=== PATIENT | male | born 1945 | race Caucasian/White ===

== ENCOUNTER 2017-05-16 15:02 | Inpatient (IN) | payer MEDICARE, BC ==
[~2017-05-16] VITALS: Ht 175.3 cm; Wt 93.2 kg
--- NOTE | ~2017-05-16 | CN ---
PATIENT NAME:DRE MORA MEDICAL RECORD: [id number] : 43 LOCATION:D.MS [place] ADMIT DATE: 05/16/17 ACCOUNT: [id number] CONSULTING PHYSICIAN: SUREKHA KLINE MD REFERRING PHYSICIAN: MARTIN GUTIÉRREZ MD DATE OF CONSULTATION: 05/17/2017 CONSULT REQUESTING PHYSICIAN: Dr. Martin Gutiérrez. REASON FOR CONSULTATION: Acute hypoxic respiratory failure, dyspnea. HISTORY OF PRESENT ILLNESS: Mr. Mora is a 71-year-old gentleman, who was admitted from the longterm with worsening shortness of breath, orthopnea, or PND. He also hears himself wheezing. There are no fever and chills. The patient has recently right knee replacement and since then, that was complicated by the pulmonary embolism and he is on Coumadin, which is therapeutic. He denies any chest pain. REVIEW OF SYSTEMS: As in history of present illness. PAST MEDICAL HISTORY: 1. Congestive heart failure. 2. Atrial fibrillation. 3. Coronary artery disease. 4. Recent pulmonary embolism. 5. History of GI bleed and ulcer. PAST SURGICAL HISTORY: 1. He is status post right knee replacement. 2. Back surgery. ALLERGIES: He has no known drug allergies. PRESENT MEDICATIONS: On Smart Holograms was reviewed. PERSONAL AND SOCIAL HISTORY: The patient is . He lives with his . He never smoked. He does having a heavy secondhand smoking exposure. FAMILY HISTORY: Noncontributory. PHYSICAL EXAMINATION: GENERAL: Now, the patient is lying comfortable and not in acute distress. VITAL SIGNS: The blood pressure is 143/86, pulse is 87, respiration is 16, temperature ____, and SpO2 is 92% on 4 liters nasal cannula. HEENT: Conjunctiva is pink. Sclera is nonicteric. NECK: Neck is supple. No JVD. CHEST: There is no wheeze. There are bilateral basal crackles. HEART: Rate and rhythm irregular. Normal sound. No murmur. ABDOMEN: Abdomen is soft. Bowel sounds present. No hepatosplenomegaly. RECTAL: Deferred. EXTREMITIES: No cyanosis, no clubbing, no pedal edema. SKIN: The skin is warm. Normal turgor. CENTRAL NERVOUS SYSTEM: The patient is awake and alert. There is no obvious cranial nerve abnormality. The gait was not tested. CONSULT REPORT [id number] DRE OMRA IMAGING: Chest radiograph, there are increased interstitial markings and prominent pulmonary vessels. LABORATORY DATA: CBC: The WBC is 10,000, hemoglobin 8.8, hematocrit 29.1, and the platelet count 304. Chemistry: Sodium 134, potassium 3.9, BUN is 13, creatinine 1.2. The proBNP 2554 and the INR is 3.38. IMPRESSION: 1. Acute hypoxic respiratory failure secondary to pulmonary edema and congestive heart failure. 2. Chronic obstructive pulmonary disease acute exacerbation, most likely secondary to congestive heart failure, possible underlying pneumonitis. 3. History of recent pulmonary embolism. The PT/INR is therapeutic. 4. Gastroesophageal reflux disease. 5. History of atrial fibrillation. RECOMMENDATION: 1. I will discontinue Augmentin and start him on IV Zosyn. 2. Start on Brovana and budesonide nebulizer. Start him on albuterol/ipratropium nebulizer. Continue Lasix. Follow up on the cardiac echo. Follow up labs and chest radiograph. Dr. Gutiérrez, thank you for involving me in the care of Mr. Mora. TRANSINT:[id number] Voice Confirmation ID: [id number] DOCUMENT ID: [id number] SUREKHA KLINE MD CC: MARTIN GUTIÉRREZ MD [id number] DICTATION DATE: 05/17/17 160 FLUME TENDER: 05/17/172018 ADM IN [place] [id number] [place] [id number]
--- NOTE | ~2017-05-16 | CN ---
PATIENT NAME:DRE ASKEW MEDICAL RECORD: [id number] : 43 LOCATION:D.MS [place] ADMIT DATE: 05/16/17 ACCOUNT: [id number] CONSULTING PHYSICIAN: MILTON BOWSER MD REFERRING PHYSICIAN: WILFREDO MIRANDA MD DATE OF CONSULTATION: 05/17/2017 Cardiology Consultation DIAGNOSES: 1. Shortness of breath. 2. Hypotension. 3. Recent pulmonary embolus. 4. Status post knee surgery in conjunction with pulmonary embolus. 5. Atrial fibrillation. HISTORY OF PRESENT ILLNESS: This is a 71-year-old gentleman admitted from a senior care with shortness of breath and hypotension. He has been short of breath since knee surgery in April, it is complicated by pulmonary embolus. This was in [place]. His chest x-ray is not compatible with pulmonary edema, he has very small left pleural effusion. He had an echocardiogram done. This reveals normal ejection fraction at 55% range, significant tricuspid regurgitation, pulmonary systolic pressure is elevated estimated at 55 mmHg. He has history of chronic atrial fibrillation for which he is on Coreg and diltiazem. His heart rate has been well controlled under 100 since he has been here. His blood pressure has been systolic in the 106-146 range. He is anemic at 8.8. Troponin is unremarkable. Creatinine is unremarkable. PHYSICAL EXAMINATION: GENERAL APPEARANCE: Well-nourished, well-developed, appears stated age. Level of distress, comfortable. PSYCHIATRIC: Mental status, alert, normal affect. Orientation, oriented to time, place and person. EYES: Lids and conjunctiva, noninjected. No discharge, no pallor. ENT: Lips, teeth, gums, normal dentition. Oropharynx, no cyanosis, no pallor. NECK: Carotid arteries, bilateral normal upstroke, no bruits, no thrills. JUGULAR VEINS: No jugular venous pressure or distention. CERVICAL LYMPH NODES: Nontender, nonenlarged. THYROID: Not enlarged. Nontender. No nodules. LUNGS: Respiratory effort, unlabored. CHEST: Normal curvature. No thoracic deformity. No chest wall tenderness. Percussion, resonant. Auscultation, clear. No wheezes, no rales, no rhonchi. CARDIOVASCULAR: Precordial exam, nondisplaced. No heaves or pericardial thrills. Rate and rhythm, regular. Heart sounds, normal S1, normal S2. No S3, no gallop, no rub. Systolic murmur, not heard. Diastolic murmur, not heard. EXTREMITIES: No cyanosis, no edema. Peripheral pulses, full and equal in all extremities, except as noted. No bruits appreciated. ABDOMEN: Soft, nondistended. Normal aorta. No bruit. Nontender. No masses. Liver, nontender, no hepatomegaly. Spleen, nontender, no splenomegaly. MUSCULOSKELETAL: No joint tenderness. No joint swelling. No erythema. NEUROLOGICAL: Normal gait, normal strength, normal tone. SKIN: Warm and dry. OVERALL IMPRESSION: This is not congestive heart failure. He has a normal ejection fraction of 50%, [id number] mitral regurgitation, but moderate CONSULT REPORT [id number] DRE ASKEW tricuspid regurgitation and elevated pulmonary systolic pressure is compatible with the pulmonary embolus. I think his shortness of breath is from the pulmonary embolus. At this time, he is stable from a cardiac standpoint. No other cardiac workup or treatment is necessary. TRANSINT:[id number] Voice Confirmation ID: [id number] DOCUMENT ID: [id number] MILTON BOWSER MD CC: [id number] DICTATION DATE: 05/17/17 155 ASSOCIATE PROFESSOR OF KINESIOLOGY: 05/17/172019 ADM IN [facility] [address] [place] [address]
--- NOTE | ~2017-05-16 | EC ---
PATIENT:DRE ASKEW DATE OF SERVICE: 05/16/17 SEX: M MEDICAL RECORD: [id number] DATE OF : 43 LOCATION:D.MS [place] AGE OF PATIENT: 71 ADMISSION DATE: 05/16/17 REFERRING PHYSICIAN: INTERPRETING PHYSICIAN: MILTON PENN MD ECHOCARDIOGRAM REPORT ECHO CHARGES 4 ECHO COMPLETE CLINICAL DIAGNOSIS: SOB ECHOCARDIOGRAPHIC MEASUREMENTS (adult normal given) AC root (d.<3.7cm) 4.0 cm LV Septum d (<1.2 cm> 1.4 cm Valve Excursion 2.1 cm LV Septum (systole) 2.1 cm Left Atria (s.<4.0cm> 4.6 cm LVPW d(<1.2cm) 1.5 cm RV (d.<2.3cm) 3.5 cm LVPW (sytole) 2.0 cm LV diastole(<5.6CM) 5.0 cm MV E-F(>70mm/sec) cm LV systole 3.0 cm LVOT Diameter 2.1 cm MV exc.(>10mm) cm Est.ejection fraction (50-75%) % Pericardial Effusion N DOPPLER: LVIT cm/sec A cm/sec E 96.0 cm/sec LA cm/sec RVSP 55.1 mmHg LVOT 77.0 cm/sec AOP1/2T m/s Asc. Ao 110 cm/sec RVOT 48.0 cm/sec RA cm/sec PA 100 cm/sec AV Gradient Peak 4.8 mmHg AV Mean 2.5 mmHg AV Area 1.7 cm MV Gradient Peak 7.0 mmHg MV Mean 1.9 mmHg MV Area cm COMMENTS: Can Line Operator: Rupali GARRIDO [place] Brake Repair Supervisor: 1 Dr. Penn TAPE# PACS DATE OF SERVICE: 05/17/2017 Echocardiogram FINDINGS: 1. Left ventricular chamber size is within normal limits. Left ventricular systolic function is normal. Overall ejection fraction estimated at 55% to 60%. 2. Left atrium is enlarged at 4.6 cm. Right atrium and right ventricular chamber sizes are moderate to severely dilated. 3. Valvular structures have normal structure and motion. ECHOCARDIOGRAM REPORT [id number] DRE ASKEW 4. Doppler interrogation reveals mild to moderate mitral regurgitation, moderate tricuspid regurgitation, no other valvular insufficiency or stenosis. Pulmonary systolic pressure is elevated estimated at 55 mmHg. 5. No evidence of pericardial effusion or left ventricular thrombus. TRANSINT:[id number] Voice Confirmation ID: [id number] DOCUMENT ID: [id number] MILTON PENN MD CC: [id number] DICTATION DATE: 05/17/17 155 FISHER CLAM: 05/17/172006 ADM IN [facility] [address] [place] [id number]
[~2017-05-16 15:02] MED LIST: AUGMENTIN 500-11 TA1 PO; DEPAKENE250 MG PO; IPRAT-ALBUT 0.5-3 ML UPD
--- NOTE | 2017-05-16 15:10 | NUR ---
PT ARRIVED TO THE FLOOR VIA STRETCHED BROUGHT BY EMS, PT TRANSFERRED INTO BED, CALL PLACED TO [facility] TO OBTAIN REPORT ON PT. SPOKE WITH AT THIS TIME AND RECIEVED ORDERS TO CONSULT PULMONOLOGY. ASSESSMENT DONE PER FLOWSHEET. BED IN LOW POSITION AND CALL LIGHT WITHIN REACH. WILL CONTINUE TO MONITOR.
[2017-05-16 15:20] LABS: BASOPHILS 0.7 % (0-2); EOSINOPHILS 4.9 % (0-7); HEMOGLOBIN 8.6 g/dL (13.5-17.5); IMMATURE GRANULOCYTES 0.1 % (0-5); LYMPHOCYTES 17.1 % (15-50); MCHC 30.7 g/dL (31.0-37.0); MCV 97.6 fL (80.0-100.0); MEAN PLATELET VOLUME 7.9 fL (7.4-10.4); MONOCYTES 14.4 % (2-11); NEUTROPHILS 62.8 % (40-80); PLATELET COUNT 276 10x3/uL (130-400); RBC 2.87 10x6/uL (4.20-6.10); RDW 16.6 % (11.5-14.5); WBC 7.4 10x3/uL (4.8-10.8)
[2017-05-16 15:51] LABS: ALBUMIN 2.3 g/dL (3.4-5.0); ANION GAP 4.2 mmol/L (8-16); BILIRUBIN - TOTAL 0.38 mg/dL (0.2-1.3); CARBON DIOXIDE 37.7 mmol/L (21.0-32.0); CREATININE - SERUM 1.2 mg/dL (0.6-1.3); POTASSIUM - SERUM 3.9 mmol/L (3.5-5.1)
[2017-05-16] MEDS ORDERED: LIPITOR20 MG PO (17:03)
[2017-05-16] MEDS ORDERED: BUMETANIDE0.5 MG PO (17:05)
[2017-05-16] MEDS ORDERED: BUMEX 1 MG TAB1 MG PO (17:09)
[2017-05-16] MEDS ORDERED: CARDIZEM CD240 MG PO (17:11)
[2017-05-16] MEDS ORDERED: COREG25 MG PO (17:11)
[2017-05-16] MEDS ORDERED: COLACE100 MG PO (17:12)
[2017-05-16 17:14] VITALS: BP 111/80; Ht 175.3 cm; Wt 93.2 kg
[2017-05-16] MEDS ORDERED: FLORANEX / LACT1 TAB PO (17:15)
[2017-05-16] MEDS ORDERED: PROTONIX40 MG PO (17:16)
[2017-05-16] MEDS ORDERED: NEURONTIN 300300 MG PO (17:16)
[2017-05-16] MEDS ORDERED: VITAMIN B-121000 MCG PO (17:21)
[2017-05-16] MEDS ORDERED: COUMADIN5 MG PO (17:22)
[2017-05-16] MEDS ORDERED: ALBUTEROL2.5 MG/3 M INH (17:23)
[2017-05-16] MEDS ORDERED: HYDROCODON-ACE1 EAC7 PO (17:24)
[2017-05-16] MEDS ORDERED: ATIVAN0.5 MG PO (17:25)
[2017-05-16] MEDS ORDERED: SANTYL30 GM TP (17:27)
[2017-05-16 18:47] LABS: APPEARANCE CLEAR (CLEAR); BILIRUBIN NEGATIVE (NEGATIVE); COLOR YELLOW (YELLOW); GLUCOSE NEGATIVE (NEGATIVE); KETONE NEGATIVE (NEGATIVE); LEUKOCYTE ESTERASE NEGATIVE (NEGATIVE); NITRITE NEGATIVE (NEGATIVE); PROTEIN NEGATIVE (NEGATIVE); UROBILINOGEN NORMAL (NORMAL)
--- NOTE | 2017-05-16 19:25 | NUR ---
RECIEVED SHIFT REPORT. PT IS LYING IN BED. ALERT AND ORIENTED AND ABLE TO VERBALIZE NEEDS. IV IS PATENT AND FLUIDS ARE RUNNING PER ORDER. O2 @ 4 PER NASAL CANNULA. DRESSING TO RIGHT KNEE C/D/I. SCD'S ON. PT DENIES ANY PAIN AT THIS TIME. NO NEEDS ARE VERBALIZED AT THIS TIME. WILL CONTINUE TO MONITOR. SIDE RAILS ARE UP X 2. BED IS IN LOWEST POSITION. MALCOM MAT IS ON FOR SAFETY. CALL LIGHT IS WITHIN REACH. IS AT THE BEDSIDE.
[2017-05-16 20:00] VITALS: BP 106/76
--- NOTE | 2017-05-16 21:34 | NUR ---
SHIFT ASSESSMENT COMPLETED. PRN ATIVAN ADMINISTERED PRESCRIBED PER ORDER AND PT REQUEST. NO FURTHER NEEDS VOICED. WILL MONITOR. SIDE RAILS X 2. BED LOW. MALCOM ON. CALL LIGHT IN REACH.
[2017-05-17 04:00] VITALS: BP 133/67
--- NOTE | 2017-05-17 07:45 | NUR ---
PT ASSESSMENT COMPLETE AWAKE AND ALERT ORINETED TO NAME ONLY CONFUSED TO TIME AND PLACE AND SITUATION, REORIENTED OFTEN HOWEVER PT UNABLE TO RETAIN INFORMATION. PIV TO LEF FORARM NOTED AND PATENT WITH NOTED DIMINISHED LUNGS SOUNDS AND SHORTNESS OF BREATH
[2017-05-17 08:23] VITALS: BP 143/86
[2017-05-17 08:29] LABS: BASOPHILS 0.4 % (0-2); EOSINOPHILS 2.7 % (0-7); HEMATOCRIT 29.1 % (42.0-54.0); HEMOGLOBIN 8.8 g/dL (13.5-17.5); IMMATURE GRANULOCYTES 0.2 % (0-5); LYMPHOCYTES 8.4 % (15-50); MCH 29.9 pg (26.0-34.0); MCHC 30.2 g/dL (31.0-37.0); MEAN PLATELET VOLUME 8.1 fL (7.4-10.4); MONOCYTES 11.5 % (2-11); NEUTROPHILS 76.8 % (40-80); PLATELET COUNT 304 10x3/uL (130-400); RBC 2.94 10x6/uL (4.20-6.10); RDW 16.7 % (11.5-14.5)
[2017-05-17 08:39] LABS: INR 3.38 (0.85-1.17); PROTIME 34.5 SECONDS (11.6-15.0)
[2017-05-17 08:58] LABS: % SATURATION 9 % (15-55); IRON 27 ug/dl (35-150); TOTAL IRON BIND CAPACITY 277 ug/dl (260-445); UNSAT IRON BIND CAPACITY 250 ug/dl (150-375)
--- NOTE | 2017-05-17 09:02 | NUR ---
Patient Name: DRE ASKEW Admission Status: Elective Accout number: [id number] Admission Date: 05-16-2017 : 1945 Admission Diagnosis: Attending: SHADY Current LOS: 1 Anticipated DC Date: 05-17-2017 Planned Disposition: Home with Home Health Primary Insurance: MEDICARE A & B Discharge Planning Comments: CM MET WITH PATIENT REGARDING D/C NEEDS AND PLANS. PATIENT STATED HE LIVES WITH HIS (KELVIN) AND SHE WILL DRIVE HIM HOME AT DISCHARGE. PATIENT STATED THERE ARE 2 STEPS W/RAILS TO ENTER HOME AND NO STAIRS INSIDE. PATIENT STATED HE HAS BEEN INDEPENDENT W/A WALKER (ALSO HAS A CANE) AT HOME. PATIENT STATED HIS PCP IS DR. CARSON IN [place] AND PHARMACY IS [facility] IN [place]. PATIENT SIGNED THE KARLY FORM WITH [facility] WHEN DISCHARGE. CM WILL CONTINUE TO FOLLOW PATIENT WITH D/C NEEDS AND PLANS. PCP DR. ALLI NOBLE IN [place]- [phone] KELVIN () [phone] WORK [phone] Display Fabricator: Libia Guerrero Is the patient Alert and Oriented? Yes 0 * How many steps to enter\exit or inside your home? 2 W/RAILS 0 * PCP DR. CARSON 0 * Pharmacy [facility] IN [place] 0 * Preadmission Environment Home with Family 0 * ADLs Independent 0 * Equipment Cane Walker 0 * List name and contact numbers for known caregivers / representatives who currently or will assist patient after discharge: KELVIN () [phone] WORK [phone] * Community resources currently utilized None 0 * Additional services required to return to the preadmission environment? Yes 0 * Can the patient safely return to the preadmission environment? Yes 0 * Has this patient been hospitalized within the prior 30 days at any hospital? Yes 0 Grand Total: 0
--- NOTE | 2017-05-17 09:11 | NUR ---
CM REASSESSMENT NOTE: CM CALLED PATIENTS AND CLARIFIED IF PATIENT CAME FROM HOME OR FROM A FACILITY. PATIENT CAME FROM [facility] AND WILL RETURN THERE AT DISCHARGE PER .
[2017-05-17 09:15] LABS: FERRITIN 392 ng/mL (3-244); PRO BNP 2554 pg/mL (0-125)
--- NOTE | 2017-05-17 11:30 | NUR ---
HU CATHETER PLACED PER STERILE TECHNIQUE ALL PEICES OF STERILE KIT USED PER PROTOCOL STAT LOCK PLACED TO RIGHT THIGH.
[2017-05-17 12:05] VITALS: BP 146/74
--- NOTE | 2017-05-17 13:11 | NUR ---
SITTING UP IN BED VISITING WITH . NO C/O AT THIS TIME. LUNGS ARE CLEAR. BP APPEARS TO LEVELING OFF SOMEWHAT. PATIENT REPORTS TIRED ALL THE TIME. STATED ALWAYS CONFUSED IN AM AND CLEARS AROUND NOON. A/O X3 AT THIS TIME. DENIES NEEDS.
--- NOTE | 2017-05-17 13:14 | NUR ---
PT AT BEDSIDE CALL LIGHT INREACH SIDE RAILS UP X 2 VOICES NEEDS STILL WITH CONFUSION NOTED
[2017-05-17 16:05] VITALS: BP 119/67
--- NOTE | 2017-05-17 17:39 | NUR ---
PT RESTING IN BED HIGH FOWLERS POSITION NOTED PIV RESITED EARLIER THIS SHIFT 20 GA X 1 STICK TO RIGHT FORARM DUE TO PT PULLED OUT ORIGINAL IV. PT TOLERATED WELL.
--- NOTE | 2017-05-17 19:25 | NUR ---
RECIEVED SHIFT REPORT. PT IS LYING IN BED. PT WITH INTERMITTENT CONFUSION AT THIS TIME. O2 @ 4 PER NASAL CANNULA. HU IS DRAINING URINE BY GRAVITY. SCD'S ON. IV IS PATENT AND FLUIDS ARE RUNNING PER ORDER. PT DENIES ANY PAIN AT THIS TIME. NO NEEDS ARE VERBALIZED AT THIS TIME. WILL CONTINUE TO MONITOR. SIDE RAILS ARE UP X 2. BED IS IN LOWEST POSITION. MALCOM MAT IS ON FOR SAFETY. CALL LIGHT IS WITHIN REACH.
[2017-05-17 20:00] VITALS: BP 120/79
--- NOTE | 2017-05-17 20:50 | NUR ---
SHIFT ASSESSMENT COMPLETED. NIGHT MEDS GIVEN WITH NO PROBLEMS. ADMINISTERED PRESCRIBED PRN ATIVAN PER PT REQUEST. NO FURTHER NEEDS AT THIS TIME. WILL MONITOR. SIDE RAILS X 2. BED LOW. MALCOM ON. CALL LIGHT IN REACH.
[2017-05-18] VITALS: BP 133/82
[2017-05-18 04:00] VITALS: BP 128/75
[2017-05-18 05:17] LABS: BASOPHILS 0.7 % (0-2); EOSINOPHILS 4.9 % (0-7); HEMATOCRIT 29.4 % (42.0-54.0); IMMATURE GRANULOCYTES 0.1 % (0-5); LYMPHOCYTES 11.6 % (15-50); MCH 30.2 pg (26.0-34.0); MCHC 30.6 g/dL (31.0-37.0); MCV 98.7 fL (80.0-100.0); MEAN PLATELET VOLUME 8.3 fL (7.4-10.4); MONOCYTES 15.2 % (2-11); NEUTROPHILS 67.5 % (40-80); PLATELET COUNT 309 10x3/uL (130-400); RBC 2.98 10x6/uL (4.20-6.10); RDW 16.6 % (11.5-14.5); WBC 9.2 10x3/uL (4.8-10.8)
[2017-05-18 05:32] LABS: CALC OSMOLALITY 276 mosm/kg (275-300); CALCIUM 8.8 mg/dL (8.5-10.1); CHLORIDE - SERUM 96 mmol/L (98-107); GLUCOSE 123 mg/dL (74-106); POTASSIUM - SERUM 3.8 mmol/L (3.5-5.1); SODIUM 138 mmol/L (136-145); UREA NITROGEN 13 mg/dL (7-18); eGFR NON AFRICAN AMERICAN 78 mL/min (90-120)
[2017-05-18 05:41] LABS: CARBON DIOXIDE 40.2 mmol/L (21.0-32.0)
[2017-05-18 09:05] VITALS: BP 128/75
--- NOTE | 2017-05-18 12:00 | NUR ---
Wound care: Pt has a chronic open wound to right knee measuring 1.5cm x 1.5cm. Pt had knee surgery in April and has had a problem with infection. The wound bed is pink and pt reports no drainage. There is no odor. Recommended silver dressing be applied daily. Will continue to monitor.
[2017-05-18 13:22] VITALS: BP 126/63
[2017-05-18 17:36] VITALS: BP 133/54
--- NOTE | 2017-05-18 17:54 | NUR ---
PT SITTING UP IN CHAIR AT BEDSIDE NO DISTRESS NOTED VOICES ALL NEEDS OT STAFF CALL LIGHT INREACH MALCOM MAT UNDER PT IN CHAIR
--- NOTE | 2017-05-18 19:30 | NUR ---
RECIEVED SHIFT REPORT. PT IS LYING IN BED. PT IS ALERT AND ORIENTED BUT WITH SOME INTERMITTENT CONFUSION. IV IS PATENT AND FLUIDS ARE RUNNING PER ORDER. HU IS DRAINING URINE BY GRAVITY. O2 @ 2.5 PER NASAL CANNULA. SCD'S ON. PT STATES PAIN IS 8/10. PT IS AMBULATORY WITH ASSISTANCE. NO NEEDS ARE VERBALIZED AT THIS TIME. WILL CONTINUE TO MONITOR. SIDE RAILS ARE UP X 2. BED IS IN LOWEST POSITION. MALCOM MAT IS ON FOR SAFETY. CALL LIGHT IS WITHIN REACH.
[2017-05-18 20:00] VITALS: BP 127/74
--- NOTE | 2017-05-18 20:44 | NUR ---
SHIFT ASSESSMENT COMPLETED. NIGHT MEDS GIVEN WITH NO PROBLEMS. PT REQUESTING PRN ATIVAN. ADMINISTERED PER ORDER. PT C/O PAIN 05/20. ADMINISTERED PRESCRIBED PRN NORCO PER ORDER. DENIES FURTHER NEEDS. WILL MONITOR. SIDE RAILS X 2. BED LOW. MALCOM ON. CALL LIGHT IN REACH.
[2017-05-19] VITALS: BP 122/68
[2017-05-19 05:49] LABS: BASOPHILS 0.8 % (0-2); EOSINOPHILS 5.8 % (0-7); HEMATOCRIT 31.5 % (42.0-54.0); HEMOGLOBIN 9.6 g/dL (13.5-17.5); IMMATURE GRANULOCYTES 0.4 % (0-5); LYMPHOCYTES 14.4 % (15-50); MCH 29.6 pg (26.0-34.0); MCHC 30.5 g/dL (31.0-37.0); MCV 97.2 fL (80.0-100.0); MEAN PLATELET VOLUME 8.5 fL (7.4-10.4); MONOCYTES 13.8 % (2-11); NEUTROPHILS 64.8 % (40-80); PLATELET COUNT 344 10x3/uL (130-400); RBC 3.24 10x6/uL (4.20-6.10); RDW 16.5 % (11.5-14.5); WBC 8.3 10x3/uL (4.8-10.8)
[2017-05-19 05:56] LABS: INR 3.61 (0.85-1.17); PROTIME 36.4 SECONDS (11.6-15.0)
[2017-05-19 06:04] LABS: CALCIUM 8.4 mg/dL (8.5-10.1); CREATININE - SERUM 1.1 mg/dL (0.6-1.3); POTASSIUM - SERUM 3.5 mmol/L (3.5-5.1)
[2017-05-19 06:14] LABS: ANION GAP 8.5 mmol/L (8-16)
--- NOTE | 2017-05-19 07:55 | NUR ---
PT AOX4 RESP EVEN AND NONLABORED IV TO RIGHT FOREARM PATENT AND INTACT AT THIS TIME PT DENIES NEEDS AT THIS TIME SRX2 BED AT LOWEST SETTING CALL LIGHT WITHIN REACH WILL CONTINUE TO MONITOR
[2017-05-19 09:41] VITALS: BP 117/88
[2017-05-19 12:55] VITALS: BP 129/69
[2017-05-19 16:34] VITALS: BP 119/70
--- NOTE | 2017-05-19 19:25 | NUR ---
RECIEVED SHIFT REPORT. PT IS LYING IN BED. ALERT AND ORIENTED AND ABLE TO VERBALIZE NEEDS BUT DOES HAVE CONFUSION AT TIMES. IV IS PATENT AND FLUIDS ARE RUNNING PER ORDER. HU IS DRAINING URINE BY GRAVITY. O2 @ 2.5 PER NASAL CANNULA. SCD'S ON. PT STATES PAIN IS 9/10. NO NEEDS ARE VERBALIZED AT THIS TIME. WILL CONTINUE TO MONITOR. SIDE RAILS ARE UP X 2. BED IS IN LOWEST POSITION. MALCOM MAT IS ON FOR SAFETY. CALL LIGHT IS WITHIN REACH.
[2017-05-19 20:00] VITALS: BP 116/66
--- NOTE | 2017-05-19 21:16 | NUR ---
SHIFT ASSESSMENT COMPLETED. NIGHT MEDS GIVEN WITH NO PROBLEMS. PT C/O PAIN 06/20. ADMINISTERED PRESCRIBED PRN NORCO PER ORDER. PT ALSO REQUESTING PRN ATIVAN. ADMINISTERED PER ORDER. NO FURTHER NEEDS. WILL MONITOR. SIDE RAILS X 2. BED LOW. MALCOM ON. CALL LIGHT IN REACH.
[2017-05-20 04:00] VITALS: BP 131/95
[2017-05-20 05:49] LABS: BASOPHILS 1.2 % (0-2); EOSINOPHILS 6.4 % (0-7); HEMATOCRIT 33.3 % (42.0-54.0); HEMOGLOBIN 10.2 g/dL (13.5-17.5); IMMATURE GRANULOCYTES 0.2 % (0-5); LYMPHOCYTES 16.8 % (15-50); MCH 29.5 pg (26.0-34.0); MCHC 30.6 g/dL (31.0-37.0); MCV 96.2 fL (80.0-100.0); MEAN PLATELET VOLUME 8.4 fL (7.4-10.4); NEUTROPHILS 62.4 % (40-80); PLATELET COUNT 369 10x3/uL (130-400); RBC 3.46 10x6/uL (4.20-6.10); RDW 16.4 % (11.5-14.5); WBC 8.2 10x3/uL (4.8-10.8)
[2017-05-20 06:06] LABS: INR 2.83 (0.85-1.17)
[2017-05-20 06:26] LABS: CALCIUM 8.7 mg/dL (8.5-10.1); CREATININE - SERUM 1.3 mg/dL (0.6-1.3); POTASSIUM - SERUM 3.2 mmol/L (3.5-5.1)
[2017-05-20 06:37] LABS: ANION GAP 9.2 mmol/L (8-16)
--- NOTE | 2017-05-20 08:27 | NUR ---
PT SEEN AND ASSESSED. ALERT AND ORIENTED TO PERSON PLACE AND MONTH/YEAR. CURRENTLY LYING ON BACK-BUTTOCK RED. ENCOURAGED PT WILL TURN EVERY FEW HOURS TO PREVENT BREAKDOWN. BED ALARM ON FOR SAFETY. HU NOTED WITH YELLOW URINE. LUNGS CLEAR. CALL LIGHT IN REACH
[2017-05-20 09:02] VITALS: BP 148/88
--- NOTE | 2017-05-20 12:11 | NUR ---
STATES PATIENT HAS NOT HAD A BM SINCE ADMISSION. DR RUBEN LEE
[2017-05-20 13:26] VITALS: BP 139/74
--- NOTE | 2017-05-20 14:07 | NUR ---
DR MIRANDA BEEPED REGARDING PT/INR RESULTS TO DOUBLE CHECK COUMADIN DOSAGE
[2017-05-20 16:28] VITALS: BP 140/72
--- NOTE | 2017-05-20 18:14 | NUR ---
PT SAT UP IN CHAIR FOR SEVERAL HOURS TODAY. HAD LARGE BM BUT DID NOT OBTAIN SPECIMEN. WILL WITH NEXT BM AND WILL PASS ON IN REPORT. CURRENTLY IN BED WITH CALL LIGHT IN REACH. BED ALARM ON FOR SAFETY
--- NOTE | 2017-05-20 19:48 | NUR ---
RECIEVED LYING IN BED WITH HOB ELEVATED. O2@ 2.5 LITERS PER NASAL CANNULA. RESPIRATIONS EVEN AND UNLABORES. F/C PATENT WITH CEAR YELLOW URINE TO BEDSIDE DRAINAGE SYSTEM. SCD'S IN PLACE AND BED ALARM ON.
[2017-05-20 20:00] VITALS: BP 125/62
--- NOTE | 2017-05-20 22:18 | NUR ---
INCONTINENT OF BOWEL. STOOL SPECIMEN COLLECTED AND TAKEN TO LAB BY THIS NURSE.
[2017-05-21] VITALS: BP 119/75
[2017-05-21 04:00] VITALS: BP 119/69
[2017-05-21 05:50] LABS: BASOPHILS 0.9 % (0-2); EOSINOPHILS 3.1 % (0-7); HEMATOCRIT 32.1 % (42.0-54.0); HEMOGLOBIN 10.1 g/dL (13.5-17.5); IMMATURE GRANULOCYTES 0.2 % (0-5); LYMPHOCYTES 15.3 % (15-50); MCH 29.6 pg (26.0-34.0); MCHC 31.5 g/dL (31.0-37.0); MEAN PLATELET VOLUME 8.5 fL (7.4-10.4); MONOCYTES 12.7 % (2-11); NEUTROPHILS 67.8 % (40-80); PLATELET COUNT 336 10x3/uL (130-400); RBC 3.41 10x6/uL (4.20-6.10); RDW 16.1 % (11.5-14.5)
[2017-05-21 05:56] LABS: MCV 94.1 fL (80.0-100.0)
[2017-05-21 06:00] LABS: ANION GAP 5.6 mmol/L (8-16); CALCIUM 9.1 mg/dL (8.5-10.1); CARBON DIOXIDE 39.8 mmol/L (21.0-32.0); CREATININE - SERUM 1.3 mg/dL (0.6-1.3); POTASSIUM - SERUM 3.4 mmol/L (3.5-5.1)
[2017-05-21 06:02] LABS: INR 2.38 (0.85-1.17); PROTIME 26.1 SECONDS (11.6-15.0)
--- NOTE | 2017-05-21 07:00 | NUR ---
REPORT RECIEVED ASSUMED CARE. PATIENT IN BED WITH IV INTACT. NO COMPLAINTS. CALL LIGHT WITHIN REACH.
[2017-05-21 08:27] VITALS: BP 108/66
[2017-05-21] MEDS ORDERED: COUMADIN3 MG PO (10:43)
[2017-05-21] MEDS ORDERED: FERROUS SULFAT325 MG PO (10:44)
[2017-05-21] MEDS ORDERED: K-DUR20 MEQ PO (10:45)
[2017-05-21] MEDS ORDERED: BUMEX2 MG PO (10:45)
[2017-05-21] MEDS ORDERED: PULMICORT0.5 MG/21 UPD (10:46)
--- NOTE | 2017-05-21 11:33 | NUR ---
CM REASSESSMENT NOTE: PATIENT IS GOING TO [facility] IN [place] BY FACILITY VAN TO A SKILLED BED. IS AWARE AND STATED SHE IS COMING TO HOSPITAL BEFORE PATIENT IS DISCHARGED.
--- NOTE | 2017-05-21 13:40 | NUR ---
DISCHARGE INSTRUCTIONS GIVEN TO PATIENT. VERBALIZED UNDERSTANDING. IV REMOVED WITH CATH TIP INTACT. FAMILY AT BEDSIDE. NO QUESTIONS AT THIS TIME. EXPLAINED ORDERED TO LEAVE CATHETER IN AND WILL REMOVE AT [place]. CALL LIGHT WITHIN REACH. WAITING FOR TRANSPORTATION.
[2017-05-21 13:47] VITALS: BP 130/86
--- NOTE | 2017-05-21 16:15 | NUR ---
PATIENT ESCORTED OUT OF BUILDING VIA WC WITH PHONE TO VEHICLE BY [place] OFFICE AUTOMATION TECHNICIAN.
== END 2017-05-21 17:42 | DRG 175 ==
LOC: D.MS 15:02
PROVIDERS: Internal Medicine Pulmonary Disease; ADMIT Family Medicine
DX: I26.99 Other pulmonary embolism without acute cor pulmonale (principal); I50.23 Acute on chronic systolic (congestive) heart failure; J96.01 Acute respiratory failure with hypoxia; J44.1 Chronic obstructive pulmonary disease with (acute) exacerbation; I48.91 Unspecified atrial fibrillation; Z79.01 Long term (current) use of anticoagulants; I08.1 Rheumatic disorders of both mitral and tricuspid valves; D50.9 Iron deficiency anemia, unspecified; G62.9 Polyneuropathy, unspecified

== ENCOUNTER 2017-08-14 14:33 | Emergency (ER) | payer MEDICARE, BC ==
[2017-05-16 17:14] VITALS: BMI 30.3
[~2017-08-14 14:33] MED LIST changes: +ALBUTEROL2.5 MG/3 M INH; +ATIVAN0.5 MG PO; +BUMETANIDE0.5 MG PO; +BUMEX 1 MG TAB1 MG PO; +BUMEX2 MG PO; +CARDIZEM CD240 MG PO; +COLACE100 MG PO; +COREG25 MG PO; +COUMADIN3 MG PO; +COUMADIN5 MG PO; +FERROUS SULFAT325 MG PO; +FLORANEX / LACT1 TAB PO; +HYDROCODON-ACE1 EAC7 PO; +K-DUR20 MEQ PO; +LIPITOR20 MG PO; +NEURONTIN 300300 MG PO; +PROTONIX40 MG PO; +PULMICORT0.5 MG/21 UPD; +SANTYL30 GM TP; +VITAMIN B-121000 MCG PO
== END 2017-08-14 16:48 | disposition home or self-care (01) ==
LOC: D.ER 14:33
DX: M54.12 Radiculopathy, cervical region (principal); I10 Essential (primary) hypertension; K21.9 Gastro-esophageal reflux disease without esophagitis